=== PATIENT | female | born 1975 | race Caucasian/White ===

== ENCOUNTER 2021-02-11 09:58 | Outpatient (CLI) | payer OTHER ==
[2021-02-11] MEDS ORDERED: FAMO-79 PO (10:23)
== END 2021-02-11 23:59 | disposition home or self-care (01) ==
LOC: STAR 09:58
PROVIDERS: ATTEND Otolaryngology
DX: Z20.822 Contact with and (suspected) exposure to COVID-19 (principal); R59.0 Localized enlarged lymph nodes
CPT/HCPCS: U0003

== ENCOUNTER 2021-02-15 07:30 | Inpatient (IN) | payer OTHER ==
[~2021-02-15] VITALS: Ht 149.9 cm; Wt 89.3 kg
[~2021-02-15 07:30] MED LIST: EPINEPHRINE 1 MG/ML, 1ML ONE; FAMO-79 PO; LIDOCAINE/PF 1%, 30ML ONE
[2021-02-15] MEDS ORDERED: CHLORHEXIDINE 15 ML UDC PO ONE (08:00)
[2021-02-15] MEDS ORDERED: LACTATED RINGERS 1,000 ML IV SCH (08:00)
[2021-02-15] MEDS ORDERED: MIDAZOLAM 1 MG/ML, 2ML ONE (08:37)
[2021-02-15] MEDS ORDERED: HYDROmorphone 1 MG/ML, 1ML INJ ONE (08:37)
[2021-02-15] MEDS ORDERED: FENTANYL PF 100 MCG/2ML ONE ×2 (08:37→11:56)
[2021-02-15] MEDS ORDERED: LABETALOL 5MG/ML, 20ML IV PRN (09:00)
[2021-02-15] MEDS ORDERED: METOCLOPRAMIDE 5 MG/ML, 2ML IVPush PRN (09:00)
[2021-02-15] MEDS ORDERED: PROMETHAZINE 25 MG/ML, 1ML IVPush PRN (09:00)
[2021-02-15] MEDS ORDERED: MEPERIDINE/PF 25MG/0.5ML IVPush PRN (09:00)
[2021-02-15] MEDS ORDERED: EPHEDRINE 50 MG/ML, 1ML IVPush PRN (09:00)
[2021-02-15] MEDS ORDERED: ACETAMINOPHEN 325 MG TABLET PO PRN (09:00)
[2021-02-15] MEDS ORDERED: KETOROLAC 30 MG/1 ML IV PRN (09:00)
[2021-02-15] MEDS ORDERED: HYDROmorphone 1 MG/ML, 1ML INJ IVPush PRN (09:00)
[2021-02-15] MEDS ORDERED: ONDANSETRON 2MG/ML, 2ML IVPush PRN (09:00)
[2021-02-15] MEDS ORDERED: METOPROLOL 1 MG/ML, 5ML IV PRN (09:00)
[2021-02-15] MEDS ORDERED: DIPHENHYDRAMINE 50 MG/ML, 1ML IVPush PRN (09:00)
[2021-02-15] MEDS ORDERED: DIAZEPAM 5 MG/ML, 2ML IVPush PRN (09:00)
[2021-02-15] MEDS ORDERED: OXYcodone 5 MG/5 ML ORAL.SOL UDC PO PRN (09:00)
[2021-02-15] MEDS ORDERED: hydrALAzine 20 MG/ML, 1ML IV PRN ×2 (09:00→14:00)
[2021-02-15] MEDS ORDERED: HALOPERIDOL 5 MG/ML IV PRN (09:00)
[2021-02-15] MEDS ORDERED: ONDANSETRON 2MG/ML, 2ML ONE (10:08)
[2021-02-15] MEDS ORDERED: CEFAZOLIN 1,000 MG ONE (10:08)
[2021-02-15] MEDS ORDERED: PHENYLEPHRINE 10 MG/ML ONE (10:08)
[2021-02-15] MEDS ORDERED: DEXAMETHASONE 4 MG/ML, 1ML ONE (10:08)
[2021-02-15] MEDS ORDERED: EPHEDRINE 50 MG/ML, 1ML ONE (10:08)
[2021-02-15] MEDS ORDERED: PROPOFOL 10 MG/ML, 20ML ONE (10:08)
[2021-02-15] MEDS ORDERED: SUCCINYLCHOLINE 20 MG/ML, 10ML ONE (10:08)
[2021-02-15 11:00] VITALS: BP 116/76
[2021-02-15] MEDS ORDERED: ACETAMINOPHEN 650 MG/20.3 ML UDC ONE (11:55)
[2021-02-15] MEDS ORDERED: OXYcodone 5 MG/5 ML ORAL.SOL UDC ONE (11:56)
[2021-02-15] MEDS: FENTANYL PF 100 MCG/2ML IV PRN ×2 (12:01→12:11)
[2021-02-15] MEDS ORDERED: OXYC-302 PO (12:02)
[2021-02-15] MEDS ORDERED: SENN-99 PO (12:02)
[2021-02-15] MEDS ORDERED: IBUP-1223 PO (12:02)
[2021-02-15] MEDS ORDERED: FAMOTIDINE 20 MG TABLET PO PRN (14:30)
[2021-02-15] MEDS: KETOROLAC 30 MG/1 ML IV PRN ×2 (15:14→21:11)
[2021-02-15] MEDS: OXYcodone/APAP 5/325MG TABLET PO PRN (18:32)
[2021-02-15 19:44] VITALS: BP 108/65
[2021-02-15] MEDS: SODIUM CHLORIDE FLUSH 10ML SYR IVF SCH (21:12)
[2021-02-16 00:01] VITALS: BP 104/64
[2021-02-16] MEDS: OXYcodone/APAP 5/325MG TABLET PO PRN ×2 (01:23→07:54)
[2021-02-16 04:08] VITALS: BP 105/63
[2021-02-16] MEDS: KETOROLAC 30 MG/1 ML IV PRN (06:02)
[2021-02-16 06:50] VITALS: BP 105/68
[2021-02-16] MEDS: SODIUM CHLORIDE FLUSH 10ML SYR IVF SCH (07:55)
[2021-02-16] MEDS ORDERED: HEPARIN 5,000 UNITS/ML, 1ML SQ SCH (08:00)
== END 2021-02-16 09:22 | disposition home or self-care (01) | DRG 804 ==
LOC: OUT 07:30 → EDSTATUS 09:30 → 4NE 13:00 → OUT 13:36 → DCLOUNGE 02-16 09:10
PROVIDERS: ADMIT Otolaryngology; ATTEND Otolaryngology
PROC: 07B10ZX Excision of Right Neck Lymphatic, Open Approach, Diagnostic (ICD-10-PCS; principal; 2021-02-15 09:30)
DX: R59.0 Localized enlarged lymph nodes (principal); G47.30 Sleep apnea, unspecified
CPT/HCPCS: 81025; 88184; 88185; 88305; G0378; J0171; J0690; J1100; J1170; J1644; J1885; J2250; J2405; J2704; J3010; J0330; J2370; J7120